=== PATIENT | female | born 1970 | race Caucasian/White ===

== ENCOUNTER → 2016-11-28 | Outpatient (CLI) | payer BC ==
[~2016-11-28] MED LIST: AMBIEN5 MG PO; FLEXERIL10 MG PO; HUMIBID LA (MU600 MG PO; SEROQUEL XR150 MG PO
== END | disposition disaster alternative care site (69) ==
LOC: GRAD 07:30
DX: M54.2 Cervicalgia (principal); R20.0 Anesthesia of skin; Z98.890 Other specified postprocedural states; Z98.1 Arthrodesis status